=== PATIENT | male | born 1955 | race Caucasian/White ===

== ENCOUNTER 2021-09-02 13:14 | Emergency (ER) | payer OTHER ==
[~2021-09-02] VITALS: Ht 182.9 cm; Wt 108.9 kg
[2021-09-02 14:33] VITALS: BP_SYST 133
--- NOTE | 2021-09-02 16:00 | NUR ---
Patient to TENT3 to gown for evaluation. Side rails up. ASSUMED CARE
--- NOTE | 2021-09-02 16:10 | NUR ---
ER at bedside examining patient.
--- NOTE | 2021-09-02 16:15 | NUR ---
PT PRESENTS TO ED WITH POS. COVID RESULTS X 10 DAYS. NO ACUTE RESP DISTRESS NOTED.VS WNL.
[2021-09-02] MEDS ORDERED: ALBU8.5H8 INH (16:45)
[2021-09-02] MEDS ORDERED: PRED20TA PO (16:45)
[2021-09-02] MEDS ORDERED: ZIT250 PO (16:47)
--- NOTE | 2021-09-02 17:00 | NUR ---
UNABLE TO LOCATE PT. PT D/C W/ACI.
[2021-09-02 17:10] VITALS: BP_SYST 133
== END 2021-09-02 17:00 | disposition home or self-care (01) ==
LOC: SED 13:14
DX: U07.1 COVID-19 (principal); J12.82 Pneumonia due to coronavirus disease 2019; J45.909 Unspecified asthma, uncomplicated; Z79.899 Other long term (current) drug therapy
CPT/HCPCS: 71045; 99283